=== PATIENT | male | born 1980 | race African-American/Black ===

== ENCOUNTER 2017-05-26 13:33 | Emergency (ER) | payer MEDICAID ==
[~2017-05-26] VITALS: Ht 177.8 cm; Wt 66.0 kg
[2017-05-26 20:00] VITALS: BP 128/65
== END 2017-05-26 20:25 | disposition home or self-care (01) ==
LOC: ER 20:12
DX: S90.32XA Contusion of left foot, initial encounter (principal); F17.200 Nicotine dependence, unspecified, uncomplicated; W22.8XXA Striking against or struck by other objects, initial encounter; Y93.89 Activity, other specified; Y92.89 Other specified places as the place of occurrence of the external cause; Y99.8 Other external cause status
CPT/HCPCS: 73630; 99284; Z7610

== ENCOUNTER 2017-06-03 09:33 | Emergency (ER) | payer MEDICAID ==
[~2017-06-03] VITALS: Ht 177.8 cm; Wt 72.0 kg
[2017-06-03 09:50] VITALS: BP 128/82
== END 2017-06-03 10:26 | disposition home or self-care (01) ==
LOC: ER 09:33
DX: S90.30XA Contusion of unspecified foot, initial encounter (principal); W22.8XXA Striking against or struck by other objects, initial encounter; Y93.89 Activity, other specified; Y92.89 Other specified places as the place of occurrence of the external cause; Y99.8 Other external cause status
CPT/HCPCS: 99282

== ENCOUNTER 2019-03-01 13:49 | Emergency (ER) | payer MEDICAID ==
[~2019-03-01] VITALS: Ht 177.8 cm; Wt 69.0 kg
[2019-03-01 15:09] VITALS: BP 117/79
== END 2019-03-01 15:11 | disposition home or self-care (01) ==
LOC: ER 13:49
DX: S40.012A Contusion of left shoulder, initial encounter (principal); R20.2 Paresthesia of skin; Y93.67 Activity, basketball; Y92.838 Other recreation area as the place of occurrence of the external cause; F12.90 Cannabis use, unspecified, uncomplicated; F17.210 Nicotine dependence, cigarettes, uncomplicated
CPT/HCPCS: 99282